=== PATIENT | male | born 1970 | race Caucasian/White ===

== ENCOUNTER 2016-03-25 15:31 | Emergency (ER) | payer BC ==
[~2016-03-25] VITALS: Ht 170.2 cm; Wt 81.8 kg
[~2016-03-25 15:31] MED LIST: NO HOME MEDICATIONS; PEPCID 20MG TAB20 MG PO; PHENERGAN 25 TA25 MG PO; PHENERGAN25 MG RC
[2016-03-25 16:48] VITALS: BP 101/79; PULSE 90; TEMP 98.6
== END 2016-03-25 16:57 | disposition home or self-care (01) ==
LOC: COL.ER 15:31
DX: S63.287A Dislocation of proximal interphalangeal joint of left little finger, initial encounter (principal); W21.05XA Struck by basketball, initial encounter; Y93.67 Activity, basketball; Y92.310 Basketball court as the place of occurrence of the external cause